=== PATIENT | female | born 1945 | race American Indian/Alaskan Native ===

== ENCOUNTER 2017-03-04 07:00 | Day surgery (SDC) | payer MEDICARE ==
[2016-07-29 07:54] VITALS: BMI 30.9
[2017-03-04] MEDS ORDERED: Midazolam 2 MG/2 ML VIAL ONE (09:41)
[2017-03-04] MEDS ORDERED: Sodium Chloride 0.9% 1,000 ML IV SCH (11:00)
--- NOTE | 2017-03-06 11:46 | CARDCATH ---
PROCEDURE DATE: 03/04/2017 PROCEDURES: 1. Left heart catheterization and coronary angiogram. 2. Radiological supervision and interpretation of the left ventricular angiogram and coronary angiogram. REFERRING PHYSICIAN: Shital Sinha MD PERFORMING PHYSICIAN: Ric Spears MD CLINICAL INDICATIONS: 1. Abnormal stress test suggestive of left anterior descending coronary artery disease. 2. Angina. 3. Diabetes. 4. Hyperlipidemia. 5. History of tobacco use in the past. PROCEDURE: After informed consent, the patient was prepped and draped in the usual sterile fashion. A 2% lidocaine was given on the right groin for local anesthesia. Using micropuncture technique, 6-Bhutanese sheath was introduced into right common femoral artery. A 6-Bhutanese JL4 diagnostic catheter engaged into left main coronary artery. Contrast was injected. Left coronary angiogram was performed. A 6-Bhutanese JR4 diagnostic catheter engaged into right coronary artery. Contrast injected and right coronary angiogram was performed. JR4 diagnostic catheter crossed into left ventricle across the aortic valve. With hand injection, LV angiogram was performed. The patient tolerated the procedure well. Postprocedure excellent hemostasis accomplished in the right groin. FINDINGS: 1. Left main coronary artery is patent. 2. Proximal, mid LAD, and diagonal branches are patent. Distal LAD has a 70% concentric stenosis. 3. Left circumflex and obtuse marginal branches are patent. 4. Right coronary artery is dominant and patent. 5. LV ejection fraction is approximately 55%. No wall motion abnormalities noted. EDP is 20. No gradient across the aortic valve. CONCLUSION: 1. Single vessel coronary artery disease. 2. Normal left ventricular systolic function. RECOMMENDATIONS: Left anterior descending coronary artery intervention if the patient is symptomatic. Ric Spears MD
== END 2017-03-04 16:30 | disposition home or self-care (01) ==
LOC: C.CATHLAB 07:00
PROVIDERS: ATTEND Internal Medicine Cardiovascular Disease
DX: I10 Essential (primary) hypertension (principal); I20.9 Angina pectoris, unspecified; E11.9 Type 2 diabetes mellitus without complications; E78.5 Hyperlipidemia, unspecified
CPT/HCPCS: 82948; J1644; J2250; J3010; J7040; Q9967

== ENCOUNTER 2018-02-10 14:38 | Inpatient (IN) | payer MEDICARE ==
[2018-02-10 14:38] VITALS: BMI 30.9
[2018-02-10 15:17] LABS: BASO % 0.6 % (0.0-2.0); EOS # 0.2 K/uL (0.0-0.7); HEMOGLOBIN 10.4 g/dL (11.0-16.0); LYMPH # 0.9 K/uL (1.0-4.3); LYMPH % 17.5 % (20.0-40.0); MEAN CELL VOLUME 86.3 fL (81.0-99.0); MEAN CORPUSCULAR HEMOGLOBIN 29.9 pg (27.0-31.0); MEAN CORPUSCULAR HGB CONC 34.6 g/dL (33.0-37.0); MEAN PLATELET VOLUME 7.5 fL (7.2-11.7); MONO # 0.5 K/uL (0.0-0.8); NEUT # 3.6 K/uL (1.8-7.0); NEUT % 69.9 % (50.0-75.0); NRBC % 0.1 % (0.0-2.0); RBC 3.48 Mil/uL (3.80-5.20); RED CELL DISTRIBUTION WIDTH 12.1 % (11.5-14.5); WHITE BLOOD COUNT 5.1 K/uL (4.8-10.8)
[2018-02-10 15:32] LABS: ALB/GLOB RATIO 1.8 (1.0-2.1); ALBUMIN 4.9 g/dL (3.5-5.0); ALT/SGPT 25 U/L (9-52); AST/SGOT 25 U/L (14-36); BLOOD UREA NITROGEN 13 mg/dL (7-17); CALCIUM 9.8 mg/dl (8.6-10.4); GFR NON-AFRICAN AMERICAN > 60
[2018-02-10] MEDS ORDERED: Sodium Chloride 0.9% 1,000 ML IV SCH (16:00)
--- NOTE | 2018-02-10 16:05 | CP.PCM.PN ---
Subjective - Date & Time of Evaluation Date of Evaluation: 02/10/18 Time of Evaluation: 17:00 - Subjective Subjective: Progress Note for Dr. Sinha's Service This is a 72 year old female with PMHx of Hypertension, Type 2 Diabetes Mellitus , CAD with distal LAD PCI placement (noted 50% stenosis after abnormal stress test, s/p cath 03/2017), Hypothyroidism, and Osteoporosis who was sent to the ED by Dr. Spears due to abnormal lab values. Patient had labs drawn 02/03/18 which showed a sodium of 119, at that time patient was asymptomatic. She was seen today by Dr. Spears, who reviewed the labs and instructed the patient to come to the ED. Today she presents to the ED with a sodium level of 124. Patient states she does not feel dizzy, confused, altered, any changes in vision , mentation, or gait. She did admit for the last 2 weeks feeling fatigue and decreased appetite. She is a vegetarian but reports she feels as if the food has no taste. She admits to drinking ~ 80-90 ounces of water / day. After a review of records from Dr. Spears's office, patient was taking Valsartan /HCTZ combo pill, which was stopped 1 week ago and switched to Losartan. Patient denied any fever, chills, headache, shortness of breath, chest pain, abdominal pain, n/v/d/c, or urinary symptoms. PMD:Dr. Sinha Service Bar Cashier: Dr. Spears PMHx: As noted above PSHx: Left carotid repair, Appendectomy, Tubal ligation, hysterectomy, PCI placement Medications: As per MAR, reviewed and confirmed with patient Allergies: NKDA SHx: Former smokers (quit 40 years ago). Occasionally drinks. Lives with daughter. Can perform all ADL's. Objective - Vital Signs/Intake and Output Vital Signs (last 24 hours): Temp Pulse Resp BP Pulse Ox 97.6 F 59 L 18 135/71 100 02/10/18 14:45 02/10/18 14:45 02/10/18 14:45 02/10/18 14:45 02/10/18 14:45 - Medications Medications: Current Medications Sodium Chloride (Sodium Chloride 0.9%) 1,000 mls @ 100 mls/hr IV .Q10H [place] - Labs Labs: 02/10/18 15:10 02/10/18 15:10 - Constitutional Appears: No Acute Distress - Head Exam Head Exam: NORMAL INSPECTION, NORMOCEPHALIC - Eye Exam Eye Exam: EOMI, Normal appearance, PERRL Pupil Exam: NORMAL ACCOMODATION - ENT Exam ENT Exam: Mucous Membranes Moist, Normal Exam - Neck Exam Neck Exam: Normal Inspection. absent: Lymphadenopathy, Tenderness, Thyromegaly - Respiratory Exam Respiratory Exam: Clear to Ausculation Bilateral, NORMAL BREATHING PATTERN. absent: Decreased Breath Sounds, Wheezes - Cardiovascular Exam Cardiovascular Exam: REGULAR RHYTHM, RRR - GI/Abdominal Exam GI & Abdominal Exam: Soft, Normal Bowel Sounds. absent: Distended - Extremities Exam Extremities Exam: Normal Inspection. absent: Pedal Edema, Tenderness - Neurological Exam Neurological Exam: Alert, Awake, CN II-XII Intact, Oriented x3 - Psychiatric Exam Psychiatric exam: Normal Affect, Normal Mood - Skin Skin Exam: Dry, Intact, Normal Color, Warm Assessment and Plan - Assessment and Plan (Free Text) Assessment: This is a 72 year old female with PMHx of Hypertension, Type 2 Diabetes Mellitus , CAD with distal LAD PCI placement (noted 50% stenosis after abnormal stress test, s/p cath 03/2017), Hypothyroidism, and Osteoporosis who was sent to the ED by Dr. Spears due to hyponatremia noted on 02/03/18 labs at 119, sodium on - 124, patient is asymptomatic. Plan: Asymptomatic Hyponatremia Likely 2/2 Diuretics and Excessive Water Intake - Patient was formerly on Valsartan / HCTZ 25mg /100mg and admitted to drinking ~80-90 ounces of water daily - Initial labs from 02/03/18 was 119 - She was discontinued on the combo pill x 1 week, started on Cozaar - Serum OSM 260, Urine Osm -180, Urine random sodium 28 - Current sodium is 124, patient is asymptomatic Management - NS @ 100cc/hr - Will follow serial BMPs, monitor clinical progress Hypertension - Resumed home medications Atenolol, Cozaar Type 2 Diabetes Mellitus, controlled - Accuchecks - A1C 5.8 - Resumed Metformin, Gabapentin - HHD, Carb consistent, vegetarian diet CAD with distal LAD PCI placement - Personal beet end supervisor is Dr. Spears who she follows with regularly -(noted 50% stenosis after abnormal stress test, s/p cath 03/2017) - Resumed ASA, Plavix, Crestor Hypothyroidism - Resumed synthroid - TSH, Free T4 - WNL Osteoporosis Prophylactic Measures - GI PPX: Protonix - DVT PPX: SCDs, lovenox - PT eval All orders and management as per Dr. Sinha DW Dr. Sinha, Daniella Jung DO, PGY2
[2018-02-10 16:42] LABS: HDL CHOLESTEROL 65 mg/dL (30-70)
[2018-02-10 16:47] LABS: OSMOLALITY,URINE 180 mosm/kg (300-1000)
[2018-02-10 16:56] LABS: LDL CHOLESTEROL < 30 mg/dL (0-129)
[2018-02-10] MEDS ORDERED: Glucagon Recombinant 1 mg Inj IM PRN (17:13)
[2018-02-10] MEDS ORDERED: Dextrose 50% SYRINGE Inj (50 ml) IV PRN (17:13)
[2018-02-10] MEDS: Sodium Chloride 0.9% 1,000 ML IV SCH (18:00)
--- NOTE | 2018-02-10 19:00 | C.PDOC ---
History Of Present Illness 72-year-old female, presents to the emergency department with complaints of low sodium level of 119, found in bloodwork on 02/03. Time Seen by Provider: 02/10/18 14:54 Chief Complaint (Nursing): Abnormal Labs Past Medical History Reviewed: Historical Data, Nursing Documentation, Vital Signs Vital Signs: Last Vital Signs Temp 97.5 F L 02/10/18 23:15 Pulse 56 L 02/10/18 23:15 Resp 20 02/10/18 23:15 BP 117/65 02/10/18 23:15 Pulse Ox 100 02/10/18 23:15 - Medical History PMH: Anemia (IRON DEFICENCY-PT. ON IRON SUPPLEMENT(02/28/17)), Arthritis, Fractures (RIGHT WRIST-CASTED ONLY), Gastritis, HTN, Hypercholesterolemia, Hyperlipidemia, Hypothyroidism, Migraine, Osteoporosis Denies: Colonic Polyps, Chronic Kidney Disease Surgical History: Appendectomy, Coronary Stent, Endoscopy Denies: Pacemaker Family History: States: No Known Family Hx - Social History Hx Alcohol Use: No Hx Substance Use: No Review Of Systems Constitutional: Negative for: Fever Cardiovascular: Negative for: Chest Pain Respiratory: Negative for: Shortness of Breath Physical Exam - Physical Exam Appears: Non-toxic, No Acute Distress Skin: Normal Color, Warm, Dry, No Rash Head: Atraumatic Eye(s): bilateral: Normal Inspection, PERRL, EOMI Nose: Normal Oral Mucosa: Moist Lips: Normal Appearing Neck: Normal ROM Cardiovascular: Rhythm Regular Respiratory: Normal Breath Sounds, No Accessory Muscle Use Back: Normal Inspection Extremity: Normal ROM, No Deformity Neurological/Psych: Oriented x3, Normal Speech ED Course And Treatment - Laboratory Results Result Diagrams: 02/10/18 15:10 02/10/18 22:25 O2 Sat by Pulse Oximetry: 100 Pulse Ox Interpretation: Normal (RA) Disposition - Disposition Disposition: HOSPITALIZED Disposition Time: 15:40 Condition: STABLE - Clinical Impression Clinical Impression: Hyponatremia - Scribe Statement The provider has reviewed the documentation as recorded by the Scribe (Nichole Diggs) Provider Attestation: All medical record entries made by the Scribe were at my direction and personally dictated by me. I have reviewed the chart and agree that the record accurately reflects my personal performance of the history, physical exam, medical decision making, and the department course for this patient. I have also personally directed, reviewed, and agree with the discharge instructions and disposition.
[2018-02-10] MEDS: ROSUVASTATIN 5MG PO SCH (19:36)
[2018-02-10 22:50] LABS: BLOOD UREA NITROGEN 13 mg/dL (7-17); CALCIUM 9.6 mg/dl (8.6-10.4); GFR NON-AFRICAN AMERICAN > 60
[2018-02-11] MEDS: Sodium Chloride 0.9% 1,000 ML IV SCH ×3 (04:20→12:30)
[2018-02-11] MEDS: Levothyroxine 25 MCG TAB PO SCH ×2 (06:05→15:41)
[2018-02-11 07:05] LABS: BASO % 0.5 % (0.0-2.0); EOS # 0.1 K/uL (0.0-0.7); EOS % 3.1 % (0.0-4.0); HEMOGLOBIN 10.6 g/dL (11.0-16.0); LYMPH # 0.7 K/uL (1.0-4.3); LYMPH % 15.4 % (20.0-40.0); MEAN CELL VOLUME 86.3 fL (81.0-99.0); MEAN CORPUSCULAR HEMOGLOBIN 29.5 pg (27.0-31.0); MEAN CORPUSCULAR HGB CONC 34.2 g/dL (33.0-37.0); MEAN PLATELET VOLUME 7.6 fL (7.2-11.7); MONO # 0.3 K/uL (0.0-0.8); MONO % 7.5 % (0.0-10.0); NEUT # 3.4 K/uL (1.8-7.0); NEUT % 73.5 % (50.0-75.0); RBC 3.59 Mil/uL (3.80-5.20); RED CELL DISTRIBUTION WIDTH 12.1 % (11.5-14.5); WHITE BLOOD COUNT 4.6 K/uL (4.8-10.8)
[2018-02-11 07:36] LABS: ALB/GLOB RATIO 1.2 (1.0-2.1); ALBUMIN 3.8 g/dL (3.5-5.0); ALT/SGPT 22 U/L (9-52); AST/SGOT 24 U/L (14-36); BLOOD UREA NITROGEN 12 mg/dL (7-17); CALCIUM 9.3 mg/dl (8.6-10.4); GFR NON-AFRICAN AMERICAN > 60
[2018-02-11] MEDS: Enoxaparin 40 mg Syringe SC SCH (10:08)
[2018-02-11] MEDS: Pantoprazole 40 mg EC Tab PO SCH (10:11)
[2018-02-11 14:51] LABS: BLOOD UREA NITROGEN 12 mg/dL (7-17); CALCIUM 9.8 mg/dl (8.6-10.4); GFR NON-AFRICAN AMERICAN > 60
[2018-02-11] MEDS: ROSUVASTATIN 5MG PO SCH (17:06)
[2018-02-11 22:00] LABS: SQUAMOUS EPITHIAL < 1 /hpf (0-5); URINE BACTERIA MANY (<OCC); URINE BILIRUBIN NEGATIVE (NEGATIVE); URINE BLOOD NEGATIVE (NEGATIVE); URINE CLARITY Clear (Clear); URINE COLOR Straw (YELLOW); URINE GLUCOSE (UA) NORMAL (Normal); URINE LEUKOCYTE ESTERASE 2+ Leu/uL (Negative); URINE PROTEIN NEGATIVE (NEGATIVE); URINE UROBILINOGEN NORMAL mg/dL (0.2-1.0)
[2018-02-12] MEDS: Sodium Chloride 0.9% 1,000 ML IV SCH ×2 (00:30→09:00)
[2018-02-12 00:34] VITALS: O2SAT 100
[2018-02-12] MEDS: Levothyroxine 25 MCG TAB PO SCH (05:56)
[2018-02-12 08:48] LABS: ALB/GLOB RATIO 1.3 (1.0-2.1); ALBUMIN 3.7 g/dL (3.5-5.0); ALT/SGPT 20 U/L (9-52); AST/SGOT 19 U/L (14-36); BLOOD UREA NITROGEN 8 mg/dL (7-17); CALCIUM 8.9 mg/dl (8.6-10.4); GFR NON-AFRICAN AMERICAN > 60
[2018-02-12] MEDS ORDERED: Pneumococcal 23-Valent Vaccine IM ONE (10:00)
[2018-02-12] MEDS ORDERED: Influenza Vaccine 60 mcg/0.5 mL SYR (4YR UP) IM ONE (10:00)
[2018-02-12] MEDS: Pantoprazole 40 mg EC Tab PO SCH (10:56)
[2018-02-12] MEDS: Enoxaparin 40 mg Syringe SC SCH (11:00)
[2018-02-12 12:09] LABS: BASO % 0.4 % (0.0-2.0); EOS # 0.1 K/uL (0.0-0.7); EOS % 2.5 % (0.0-4.0); HEMOGLOBIN 10.1 g/dL (11.0-16.0); LYMPH # 0.8 K/uL (1.0-4.3); MEAN CELL VOLUME 87.1 fL (81.0-99.0); MEAN CORPUSCULAR HEMOGLOBIN 29.8 pg (27.0-31.0); MEAN CORPUSCULAR HGB CONC 34.2 g/dL (33.0-37.0); MEAN PLATELET VOLUME 7.8 fL (7.2-11.7); MONO # 0.5 K/uL (0.0-0.8); NEUT # 3.8 K/uL (1.8-7.0); NEUT % 72.1 % (50.0-75.0); RBC 3.38 Mil/uL (3.80-5.20); RED CELL DISTRIBUTION WIDTH 12.2 % (11.5-14.5); WHITE BLOOD COUNT 5.3 K/uL (4.8-10.8)
[2018-02-12] MEDS: ROSUVASTATIN 5MG PO SCH (18:08)
[2018-02-13 02:05] VITALS: RESP 20; TEMP 97.6
[2018-02-13] MEDS: Levothyroxine 25 MCG TAB PO SCH (06:04)
[2018-02-13 07:42] LABS: BASO % 0.2 % (0.0-2.0); EOS # 0.2 K/uL (0.0-0.7); EOS % 4.2 % (0.0-4.0); LYMPH # 0.8 K/uL (1.0-4.3); LYMPH % 15.4 % (20.0-40.0); MEAN CELL VOLUME 86.8 fL (81.0-99.0); MEAN CORPUSCULAR HEMOGLOBIN 29.8 pg (27.0-31.0); MEAN CORPUSCULAR HGB CONC 34.3 g/dL (33.0-37.0); MEAN PLATELET VOLUME 7.9 fL (7.2-11.7); MONO # 0.3 K/uL (0.0-0.8); MONO % 6.5 % (0.0-10.0); NEUT # 3.7 K/uL (1.8-7.0); NEUT % 73.7 % (50.0-75.0); RBC 3.37 Mil/uL (3.80-5.20); RED CELL DISTRIBUTION WIDTH 12.3 % (11.5-14.5)
--- NOTE | 2018-02-13 07:43 | HP ---
HISTORY OF PRESENT ILLNESS: A 72-year-old female with hypertension, weakness, fatigue. The patient is found to have hyponatremia, anemia. The patient states that she has lowered her sodium intake to minimum, and she is drinking large amounts of fluid water for general health. The patient has a history of hypertension. She was taking losartan/HCTZ and switched to losartan. The patient also has hyponatremia came to the ER with a sodium 124. The patient is a smoker. The patient has a history of kidney disease. PHYSICAL EXAMINATION: GENERAL: The patient is awake, alert, and oriented. VITAL SIGNS: Temperature 98, pulse 90. HEENT: Within normal limits. NECK: Neck. CHEST: Symmetrical. HEART: Regular. ABDOMEN: Soft. EXTREMITIES: No edema. IMPRESSION AND PLAN: The patient has hyponatremia, with low salt intake. The patient is to get fluid restriction and . Shital Sinha MD
[2018-02-13 07:51] LABS: ALB/GLOB RATIO 1.3 (1.0-2.1); ALBUMIN 3.7 g/dL (3.5-5.0); ALT/SGPT 23 U/L (9-52); AST/SGOT 22 U/L (14-36); BLOOD UREA NITROGEN 6 mg/dL (7-17); CALCIUM 9.2 mg/dl (8.6-10.4); GFR NON-AFRICAN AMERICAN > 60
--- NOTE | 2018-02-13 08:00 | PN ---
DATE: 02/12/2018 The patient is improving. improving. Continue fluid restrictions and saline. Shital Sinha MD
[2018-02-13] MEDS ORDERED: Magnesium Sulfate 1 gm in D5W 1 GM/100 ML BAG IVPB ONE (08:01)
--- NOTE | 2018-02-13 09:15 | CP.PCM.PN ---
Subjective - Date & Time of Evaluation Date of Evaluation: 02/13/18 Time of Evaluation: 09:08 - Subjective Subjective: PGY3 progress note for Dr. Sinha Pt seen and examined at bedside. No acute event overnight. Patient is sitting on side of bed comfortably. Answers questions pleasantly. Denies having any VALDOVINOS , vision changes, hearing changes, worsening numbness, tingling, extremity weakness, CP, SOB, abd pain, N/V/D/C. Patient states she is ambulating to bathroom without difficulty. Objective - Vital Signs/Intake and Output Vital Signs (last 24 hours): Temp Pulse Resp BP Pulse Ox 97.6 F 57 L 20 142/64 100 02/13/18 07:04 02/13/18 07:41 02/13/18 07:04 02/13/18 07:04 02/13/18 07:04 Intake and Output: 02/13/18 02/13/18 06:59 18:59 Intake Total 900 Balance 900 - Medications Medications: Current Medications Acetaminophen (Tylenol 325mg Tab) 650 mg PO Q6 PRN PRN Reason: Headache Last Admin: 02/11/18 13:53 Dose: 650 mg Atenolol (Tenormin) 25 mg PO HS [facility] Last Admin: 02/12/18 22:21 Dose: 25 mg Clopidogrel Bisulfate (Plavix) 75 mg PO DAILY [facility] Last Admin: 02/12/18 10:56 Dose: 75 mg Dextrose (Dextrose 50% Inj) 0 ml IV STAT PRN; Protocol PRN Reason: Hypoglycemia Protocol Dextrose (Glutose 15) 0 gm PO ONCE PRN; Protocol PRN Reason: Hypoglycemia Protocol Enoxaparin Sodium (Lovenox) 40 mg SC DAILY [facility] Last Admin: 02/12/18 11:00 Dose: 40 mg Ferrous Sulfate (Feosol) 325 mg PO BID [facility] Last Admin: 02/12/18 18:08 Dose: 325 mg Gabapentin (Neurontin) 300 mg PO BID [facility] Last Admin: 02/12/18 18:08 Dose: 300 mg Glucagon (Glucagen Diagnostic Kit) 0 mg IM STAT PRN; Protocol PRN Reason: Hypoglycemia Protocol Sodium Chloride (Sodium Chloride 0.9%) 1,000 mls @ 100 mls/hr IV .Q10H [facility] Last Admin: 02/12/18 09:00 Dose: Not Given Dextrose (Dextrose 5% In Water 1000 Ml) 1,000 mls @ 0 mls/hr IV .Q0M PRN; Protocol; Per Protocol PRN Reason: Hypoglycemia Protocol Levothyroxine Sodium (Synthroid) 25 mcg PO DAILY@0630 [facility] Last Admin: 02/13/18 06:04 Dose: 25 mcg Losartan Potassium (Cozaar) 100 mg PO DAILY [facility] Last Admin: 02/12/18 10:56 Dose: 100 mg Metformin HCl (Glucophage) 1,000 mg PO BID [facility] Last Admin: 02/12/18 18:08 Dose: 1,000 mg Pantoprazole Sodium (Protonix Ec Tab) 40 mg PO DAILY [facility] Last Admin: 02/12/18 10:56 Dose: 40 mg Rosuvastatin Calcium (Crestor) 5 mg PO QPM [facility] Last Admin: 02/12/18 18:08 Dose: 5 mg - Labs Labs: 02/13/18 07:20 02/13/18 07:20 - Constitutional Appears: Non-toxic, No Acute Distress - Head Exam Head Exam: ATRAUMATIC, NORMOCEPHALIC - ENT Exam ENT Exam: Mucous Membranes Moist - Respiratory Exam Respiratory Exam: Clear to Ausculation Bilateral. absent: Accessory Muscle Use , Rales, Rhonchi, Wheezes, Respiratory Distress - Cardiovascular Exam Cardiovascular Exam: REGULAR RHYTHM, +S1, +S2. absent: Gallop, Rubs, Murmur - GI/Abdominal Exam GI & Abdominal Exam: Soft, Normal Bowel Sounds. absent: Distended, Firm, Guarding, Rigid, Tenderness, Organomegaly - Extremities Exam Extremities Exam: absent: Pedal Edema, Tenderness - Neurological Exam Neurological Exam: Alert, Awake, Oriented x3 - Psychiatric Exam Psychiatric exam: Normal Affect, Normal Mood - Skin Skin Exam: Dry, Intact, Normal Color, Warm Assessment and Plan - Assessment and Plan (Free Text) Assessment: This is a 72 year old female with PMHx of Hypertension, Type 2 Diabetes Mellitus , CAD with distal LAD PCI placement (noted 50% stenosis after abnormal stress test, s/p cath 03/2017), Hypothyroidism, and Osteoporosis who was sent to the ED by Dr. Spears due to hyponatremia noted on 02/03/18 labs at 119. Plan: Asymptomatic Hyponatremia Likely 2/2 Diuretics and Excessive Water Intake - Patient was formerly on Valsartan / HCTZ 25mg /100mg and admitted to drinking ~80-90 ounces of water daily - Initial labs from 02/03/18 was 119 - She was discontinued on the combo pill x 1 week, started on Cozaar - On admission: serum OSM 260, Urine Osm -180, Urine random sodium 28 - Sodium this morning is 134 Management - NS @ 100cc/hr Hypertension - Resumed home medications Atenolol, Cozaar Type 2 Diabetes Mellitus, controlled - Accuchecks - A1C 5.8 - Resumed Metformin, Gabapentin - HHD, Carb consistent, vegetarian diet - Hypoglycemia protocol CAD with distal LAD PCI placement - Personal image editor is Dr. Spears who she follows with regularly -(noted 50% stenosis after abnormal stress test, s/p cath 03/2017) - Resumed ASA, Plavix, Crestor Hypothyroidism - Resumed synthroid - TSH, Free T4 - WNL Anemia - Will monitor for bleeding - Pt will require outpt work up - Continue ferrous sulfate po BID Prophylactic Measures - GI PPX: Protonix - DVT PPX: SCDs, lovenox - PT eval All orders and management as per Dr. Sinha Patient is stable for discharge home per Dr. Sinha Patient is to follow up with PMD upon discharge. Patient is to continue taking her home medications as prescribed. She is given script for Plavix 75 mg orally daily for 30 tabs. Patient is also started on Ferrous sulfate 325 mg orally twice daily 60 tabs. Please return to ED if symptoms return.
[2018-02-13] MEDS: Pantoprazole 40 mg EC Tab PO SCH (09:49)
[2018-02-13] MEDS: Enoxaparin 40 mg Syringe SC SCH (09:50)
[2018-02-13 11:10] VITALS: BP 145/64; PULSE 62
[2018-02-13] MEDS: Sodium Chloride 0.9% 1,000 ML IV SCH (11:43)
== END 2018-02-13 12:37 | disposition home or self-care (01) | DRG 641 ==
LOC: C.ER 14:38 → C.9E 15:56 → C.3T 16:29 → C.5S 21:39
PROVIDERS: ADMIT Internal Medicine Pulmonary Disease; ATTEND Internal Medicine Pulmonary Disease
DX: E87.1 Hypo-osmolality and hyponatremia (principal); D50.9 Iron deficiency anemia, unspecified; E03.9 Hypothyroidism, unspecified; E11.9 Type 2 diabetes mellitus without complications; I10 Essential (primary) hypertension; I25.10 Atherosclerotic heart disease of native coronary artery without angina pectoris; E78.5 Hyperlipidemia, unspecified; E78.00 Pure hypercholesterolemia, unspecified; F17.200 Nicotine dependence, unspecified, uncomplicated; M81.0 Age-related osteoporosis without current pathological fracture; Z95.5 Presence of coronary angioplasty implant and graft; Z90.710 Acquired absence of both cervix and uterus; Z90.49 Acquired absence of other specified parts of digestive tract; Z79.84 Long term (current) use of oral hypoglycemic drugs

== ENCOUNTER → 2018-08-11 | Outpatient (CLI) | payer MEDICARE | LOC: C.CARD 07:27 ==

== ENCOUNTER 2018-09-27 07:16 | Day surgery (SDC) | payer MEDICARE ==
[2018-09-27 07:50] VITALS: BMI 36.1
[2018-09-27] MEDS ORDERED: Propofol 10 mg/ml Inj (20 ML) ONE ×2 (09:52→10:26)
[2018-09-27] MEDS ORDERED: Lactated Ringer's 1,000 ML IV ONE (10:00)
--- NOTE | 2018-09-27 10:01 | CP.SDSHP ---
Same Day Surgery H & P - History Proposed Procedure: colonoscopy Pre-Op Diagnosis: history of polyps - Previous Medical/Surgical History Cardiac: Hypertension, ASHD/CAD Endocrine/Metabolic: Thyroid Disease, Diabetes - Allergies Allergies: Allergies DUST Allergy (Intermediate, Uncoded 02/10/18 14:50) CONGESTION/CONGESTION WOOL Allergy (Intermediate, Uncoded 02/10/18 14:50) ITCHING/RASH - Current Medications Current Medications: reviewed - Physical Exam General Appearance: wdwn nad Vital Signs: Vital Signs 09/27/18 07:31 Temperature 97.8 F Pulse Rate 66 Respiratory 19 Rate Blood Pressure 148/76 O2 Sat by Pulse 100 Oximetry Mental Status: Alert & Oriented x3 Heart: WNL Lungs: WNL GI: WNL - {Optional Preform as Required} Abdomen: WNL - Impression Impression: colon polyps Pt. Evaluated Today:Candidate for Anesthesia & Procedure: Yes - Date & Time Date: 09/27/18 Time: 10:00 Short Stay Discharge - Short Stay Discharge Admitting Diagnosis/Reason for Visit: POLYP OF COLON Disposition: HOME/ ROUTINE
[2018-09-27 10:55] VITALS: TEMP 98.9
[2018-09-27 11:19] VITALS: O2SAT 99
[2018-09-27 11:20] VITALS: BP 139/61; PULSE 61; RESP 18
== END 2018-09-27 11:18 | disposition home or self-care (01) ==
LOC: C.ENDO 07:16
PROVIDERS: ATTEND Internal Medicine Gastroenterology
DX: Z12.11 Encounter for screening for malignant neoplasm of colon (principal); Z86.010 Personal history of colon polyps; I10 Essential (primary) hypertension; I25.10 Atherosclerotic heart disease of native coronary artery without angina pectoris; E11.9 Type 2 diabetes mellitus without complications; E07.9 Disorder of thyroid, unspecified; K64.0 First degree hemorrhoids
CPT/HCPCS: 45378; 82948; J2704; J7120